=== PATIENT | female | born 1980 | race Caucasian/White ===

== ENCOUNTER 2017-04-25 11:50 | Emergency (ER) | payer SELFPAY ==
--- NOTE | 2017-04-25 15:20 | ULT ---
DOPPLER VENOUS ULTRASOUND OF THE LEFT BREAST: INDICATION: A 36-year-old female with a tender palpable area in the 6 o'clock position without redness or warmth. TECHNIQUE: [place] scale and color Doppler images were obtained within the region of palpable interest of the left breast 6 o'clock position 1 cm from the nipple. FINDINGS: There is a tubular intermediate echogenicity lesion underlying the palpable region of interest measur ing 2.5 x 3 mm without appreciable internal Doppler flow. This has a similar echotexture to some of the surrounding breast parenchyma and may reflect a ridge of just accentuated breast tissue; however, this could also be seen with a superficial thrombosed vein near the skin surface of the lower left b reast. IMPRESSION: Tubular mixed echogenicity nonvascular structure seen within the palpable range of region of interest may reflect a ridge of normal breast tissue; however, a thrombosed superficial vein cannot be entire ly excluded. Will recommend a followup mammographic evaluation for a diagnostic mammogram and left b reast ultrasound for further characterization. CODE T POS: [facility]
== END 2017-04-25 15:27 | disposition home or self-care (01) ==
LOC: ERS 11:50
DX: N64.4 Mastodynia (principal); J44.9 Chronic obstructive pulmonary disease, unspecified; F41.9 Anxiety disorder, unspecified; F17.210 Nicotine dependence, cigarettes, uncomplicated; Z79.899 Other long term (current) drug therapy

== ENCOUNTER 2017-04-30 12:55 | Emergency (ER) | payer SELFPAY ==
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
[2017-04-30 14:59] LABS: Bilirubin Small (Negative); Blood, Urine Negative (Negative); Clarity TURBID (Clear); Glucose, Urine (Dipstick) Negative (Negative); Leukocyte Negative (Negative); Nitrite Negative (Negative); Pregnancy Test - Urine (BHCG) Negative (Negative); Pregu Control Background? CLEAR/WHITE (CLR/WHITE); Pregu Control Bar Appear? YES (CONTROL BAR); Protein, Urine (Dipstick) Negative (Neg-Trace); Specific Gravity 1.025 (1.002-1.036); Specific Gravity, Urine 1.025 (1.002-1.036); Urobilinogen 0.2 mg/dL (0.2-1.0); pH, Urine 5.5 (5.0-9.0)
[2017-04-30] MEDS ORDERED: Ketorolac Tromethamine 30 MG/ML VIAL ONE (15:32)
[2017-04-30] MEDS ORDERED: Diazepam 5 MG TAB ONE (15:33)
== END 2017-04-30 16:26 | disposition home or self-care (01) ==
LOC: ERS 12:55
DX: S70.02XA Contusion of left hip, initial encounter (principal); M54.2 Cervicalgia; J44.9 Chronic obstructive pulmonary disease, unspecified; F41.9 Anxiety disorder, unspecified; F17.210 Nicotine dependence, cigarettes, uncomplicated; V69.9XXA Occupant (driver) (passenger) of heavy transport vehicle injured in unspecified traffic accident, initial encounter
CPT/HCPCS: 71046; 72125; 81003; 81025; 96372; J1885

== ENCOUNTER 2018-10-30 08:15 | Emergency (ER) | payer SELFPAY ==
[2018-10-30 08:46] LABS: #Basophils 0.1 thou/uL (0.0-0.2); #Eosinphils 0.2 thou/uL (0.0-0.7); #Lymphocytes 1.9 thou/uL (1.20-3.40); #Monocytes 0.8 thou/uL (0.11-0.59); %Basophils 0.8 % (0.0-1.0); %Eosinophils 1.5 % (0.0-10.0); %Lymphocytes 17.1 % (21.0-51.0); %Monocytes 7.2 % (0.0-10.0); %Neutrophils 73.5 % (42.0-75.0); Mean Corpuscular HGB CONC 34.4 g/dL (32.0-36.0); Mean Corpuscular Hemoglobin 30.8 pg (27.0-31.0); Mean Corpuscular Volume 89.4 fL (78.0-98.0); Mean Platelet Volume 10.7 fL (7.4-10.4); Platelet Count 137 thou/uL (130-400); RBC Distribution Width 13.4 % (11.5-14.5); Red Blood Cell (RBC) Count 4.24 mill/uL (4.20-5.40); White Blood Cell (WBC) Count 10.9 thou/uL (4.8-10.8)
--- NOTE | 2018-10-30 08:59 | RAD ---
XR Chest Pa Lat STANDARD HISTORY: Chest pain worse with deep breath, dyspnea COMPARISON: 04/30/2017 FINDINGS: The heart size is normal. The lungs are well expanded without focal areas of consolidation, pneumothorax or pleural effusions. IMPRESSION: No radiographic evidence of acute cardiopulmonary process.
[2018-10-30] MEDS ORDERED: methylPREDNISolone Sod Succ/PF 125 MG/2 ML VIAL ONE (09:06)
[2018-10-30 09:09] LABS: ALT (SGPT) 7 U/L (8-55); AST (SGOT) 15 U/L (5-34); Albumin 4.1 g/dL (3.5-5.0); Alkaline Phosphatase 65 U/L (40-150); Anion Gap 12 mmol/L (10-20); BUN (Urea Nitrogen) 21 mg/dL (7.0-18.7); Bilirubin, Total 0.2 mg/dL (0.2-1.2); CK (CPK) 49 U/L (29-168); Calc. Creatinine Clearance 0 mL/min (70-130); Calcium 9.1 mg/dL (7.8-10.44); Carbon Dioxide 20 mmol/L (22-29); Chloride 109 mmol/L (98-107); Estimated GFR-MDRD 75; Globulin 2.5 g/dL (2.4-3.5); Glucose 106 mg/dL (70-105); Lipase 49 U/L (8-78); Potassium 4.4 mmol/L (3.5-5.1); Protein, Total 6.6 g/dL (6.0-8.3); Sodium 137 mmol/L (136-145)
[2018-10-30] MEDS ORDERED: Morphine 4 MG/ML VIAL ONE (09:25)
--- NOTE | 2018-10-30 10:10 | CT ---
CT PULMONARY ANGIOGRAM WITH IV CONTRAST AND 3-D POSTPROCESSING: HISTORY:Dyspnea and right-sided chest pain FINDINGS: There is good contrast opacification of the pulmonary arterial vasculature without filling defects to suggest pulmonary embolism. No thoracic aortic aneurysm is seen. No pleural or pericardial effusions are seen. No pneumothoraces, focal areas of consolidation or lung nodules are noted. A tiny peripheral calcifie d granuloma is seen in the left upper lobe. IMPRESSION: No CT evidence of pulmonary embolism.
[2018-10-30] MEDS ORDERED: Ketorolac Tromethamine 30 MG/ML VIAL ONE (10:38)
[2018-10-30] MEDS ORDERED: Diazepam 10 MG/2 ML SYRINGE ONE (10:38)
[2018-10-30 10:53] LABS: Bilirubin Negative (Negative); Blood, Urine Negative (Negative); Clarity Clear (Clear); Glucose, Urine (Dipstick) Normal (Negative); Leukocyte 250 Leu/uL (Negative); Nitrite Negative (Negative); Protein, Urine (Dipstick) Negative (Neg-Trace); Urobilinogen Normal mg/dL (Less than 2)
[2018-10-30 10:54] LABS: Bacteria/HPF 1+ HPF (None Seen); Pregnancy Test - Urine (BHCG) Negative (Negative); Pregu Control Background? CLEAR/WHITE (CLR/WHITE); Pregu Control Bar Appear? YES (CONTROL BAR); Specific Gravity 1.056 (1.002-1.036)
[2018-10-30] MEDS ORDERED: ISOVUE-370 76%-LOCM 1 ML ONE (15:20)
== END 2018-10-30 13:10 | disposition home or self-care (01) ==
LOC: ERS 08:15
DX: R07.89 Other chest pain (principal); J44.9 Chronic obstructive pulmonary disease, unspecified; F41.9 Anxiety disorder, unspecified; F17.210 Nicotine dependence, cigarettes, uncomplicated; Z71.6 Tobacco abuse counseling
CPT/HCPCS: 36415; 71046; 71275; 80053; 81003; 81015; 81025; 82550; 83690; 83880; 84484; 85025; 87086; 93005; 94640; 96361; 96374; 96375; 99406; J1885; J2270; J2930; J3360; J7620; Q9966

== ENCOUNTER 2019-10-26 12:53 | Emergency (ER) | payer SELFPAY ==
[2019-10-26] MEDS ORDERED: Lidocaine 1% (PF) 30 ML VIAL ONE (13:37)
[2019-10-26] MEDS ORDERED: Adacel (T-DAP) 0.5 ML SYRINGE ONE (13:37)
[2019-10-26] MEDS ORDERED: Bacitracin 1 PK ONE (14:21)
== END 2019-10-26 14:25 | disposition home or self-care (01) ==
LOC: ERS 12:53
DX: S61.412A Laceration without foreign body of left hand, initial encounter (principal); J44.9 Chronic obstructive pulmonary disease, unspecified; F41.9 Anxiety disorder, unspecified; F17.210 Nicotine dependence, cigarettes, uncomplicated; W26.0XXA Contact with knife, initial encounter
CPT/HCPCS: 12001; 90471; 90715; J2001